=== PATIENT | female | born 2005 | race Caucasian/White ===

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

== ENCOUNTER 2025-04-18 18:33 | Emergency (ER) | payer OTHER ==
[~2025-04-18] VITALS: Ht 165.1 cm; Wt 50.0 kg
[2025-04-18 18:38] VITALS: BP 132/90; PULSE 92; RESP 16; TEMP 36.9; O2SAT 99
[2025-04-18] MEDS ORDERED: IBUP-2029 MT (19:52)
[2025-04-18] MEDS: IBUPROFEN 600MG TABLET PO ONE (19:59)
== END 2025-04-18 20:12 | disposition home or self-care (01) ==
LOC: ER 18:33
DX: M25.511 Pain in right shoulder (principal); M79.661 Pain in right lower leg; M79.671 Pain in right foot; V43.52XA Car driver injured in collision with other type car in traffic accident, initial encounter; Y93.89 Activity, other specified; Y92.410 Unspecified street and highway as the place of occurrence of the external cause; Y99.8 Other external cause status
CPT/HCPCS: 73030; 73552; 73630; 81025; 99284